=== PATIENT | female | born 1950 | race Caucasian/White ===

== ENCOUNTER 2016-08-11 06:43 | Inpatient (IN) | payer MEDICARE, MEDICAID ==
--- NOTE | 2016-07-06 12:14 | NUR ---
PMH, allergies, meds reviewed and documented. PReop and DOS instructions given including handouts of shower instructions, medications to stop before surgery, letter from Dr White, ortho consent, Surgical Services pamphlet and my contact information. Patient is at high risk for DANISHA and if she needs DANISHA study she would like to have it through Dr Crawford her head start director. I will contact him regarding testing. Patient is accompanied by her daughter today who is an SWITCHBOARD OPERATOR HELPER. Patient does live with her daughter.
--- NOTE | 2016-07-26 14:00 | NUR ---
JOINT REPLACEMENT PREOP CLASS PATIENT ATTENDED JOINT REPLACEMENT PREOP CLASS. CASE MANAGEMENT CONTACT INFORMATION PROVIDED. EDUCATION WAS PROVIDED REGARDING WHAT TO EXPECT BEFORE, DURING AND AFTER SURGERY. INCLUDING: OVERVIEW OF ANATOMY AND PHYSIOLOGY HOSPITAL TREATMENT SCHEDULE THERAPY DEMONSTRATION CASE MANAGEMENT RESPONSIBILITIES DISCHARGE PLANNING EQUIPMENT NEEDS JOINT REPLACEMENT WORKBOOK ANTI-COAGULATION SURGERY STRONG NUTRITIONAL PROTOCOL DISCHARGE INSTRUCTIONS [facility] PATIENT PORTAL, WITH INSTRUCTIONS CJR AND PREOP SURVERY PREOP BATHING- CHG GIVEN ALL PATIENT'S QUESTIONS ANSWERED TO THEIR SATISFACTION. PATIENTS AND COACHES ENCOURAGED TO CALL WITH ANY ADDITIONAL QUESTIONS OR CONCERNS. CM FOLLOWING FOR TRANSITIONAL CARE PLANNING NEEDS DURING HOSPITALIZATION.
[~2016-08-11] VITALS: Ht 156.2 cm; Wt 87.7 kg
[2016-08-11] VITALS (27 sets, daily range): BP systolic 114–178; BP diastolic 54–83; PULSE 68–94; RESP 13–20; TEMP 97–98.3; O2SAT 93–100; Ht 156.2 cm; Wt 87.7 kg
[~2016-08-11 06:43] MED LIST: ACET-62 PO; AMLO5TAB2 PO; CALC-1138 PO; CEFAZOLIN 2 GM VIAL IV ONE; FAMOTIDINE 20mg IVPB 50 ML IV ONE; FEXO180T94 PO; FISH12002 PO; GINK120C PO; GLUC500T13 PO; IPRA3AMP AEROSOL; LIDOCAINE 1% (10mg/ml) 2ml SDV ID ONE; LISI1TAB11 PO; MAGN250T33 PO; METOCLOPRAMIDE 10mg/2ml INJECTION IV ONE; MOME13HF3 INH; MULT-933 PO
[2016-08-11] MEDS ORDERED: ONDANSETRON 4mg/2ml INJECTION IV ONE (07:00)
[2016-08-11] MEDS ORDERED: DEXAMETHASONE 4mg/ml - 1ml INJECTION IV ONE (07:00)
[2016-08-11] MEDS ORDERED: ACETAMINOPHEN 500 MG TABLET PO ONE (07:00)
[2016-08-11] MEDS ORDERED: LR 1,000 ML IV PRN (07:00)
[2016-08-11] MEDS ORDERED: NOZIN NASAL SWAB NS ONE ×2 (07:00→14:30)
--- NOTE | 2016-08-11 09:20 | NUR ---
Sleep Study was done by Dr Crawford's office per Sarika. CPAP setting is to be at 14cm.
[2016-08-11 09:35] LABS: ANION GAP 14 MEQ/L (5-15); BUN/CREATININE RATIO 37 RATIO (6-26); CALCIUM 10.2 MG/DL (8.4-10.2); CHLORIDE 111 MEQ/L (98-107); CO2 - CARBON DIOXIDE 24 MEQ/L (22-30); GLOMERULAR FILTRATION RATE 55; GLUCOSE 93 MG/DL (65-110); POTASSIUM 4.1 MEQ/L (3.6-5); SODIUM 149 MEQ/L (134-144)
[2016-08-11] MEDS ORDERED: FENTANYL 100mcg/2ml INJECTION ONE (10:59)
[2016-08-11] MEDS ORDERED: MIDAZOLAM 2mg/2ml INJECTION ONE (10:59)
[2016-08-11] MEDS ORDERED: PROPOFOL 500mg 50 ML IV ONE (11:00)
--- NOTE | 2016-08-11 11:53 | ANESPREOP ---
Anesthesia Record Date and Time DATE: 08/11/16 TIME: 11:52 Proposed Surgical Procedure RT ERNIE NPO since: mn Allergies: Coded Allergies: aspirin (Verified Allergy, Unknown, anaphylaxis, 07/07/16) ibuprofen (Verified Allergy, Unknown, ANAPHYLAXIS, 07/07/16) Ht/Wt/BMI Height: 5 ' 1.50 " Weight: 87.700 kg BMI: 35.9 kg/m2 Vital Signs Date Time Temp Pulse Resp B/P Pulse Ox O2 Delivery O2 Flow Rate FiO2 08/11/16 11:36 98.0 08/11/16 09:40 16 08/11/16 09:22 78 178/83 95 Room Air Medications Inpatient Medications Current Medications Medications (Trade) Dose Ordered Sig/Pia Start Time Stop Time Status Last Admin Dose Admin Lactated Ringer's (Lactated Ringers) 1,000 ml @ 50 mls/hr Q20H PRN 08/11/16 07:00 08/11/16 09:53 50 MLS/HR Acetaminophen (Acetaminophen) 500 Mg Tablet, 2 TAB PO BID, (Reported) Do not exceed 3,200 mg of acetaminophen in a 24 hours period. Last Taken: on 07/21/16 Amlodipine Besylate (Amlodipine Besylate) 5 Mg Tablet, 1 TAB PO HS, (Reported) Last Taken: on 08/10/16 2230 Calcium Citrate/Vitamin D3 (Calcium Citrate + Vit D3 Tablet) 1 Each Tablet, 1 TAB PO HS, (Reported) Last Taken: on 07/21/16 Fexofenadine HCl (Madhavi Allergy) 180 Mg Tablet, 1 TAB PO DAILY, (Reported) Last Taken: on 07/21/16 Fish Oil/Borage/Flax/Om3,6,9#1 ([place] 3-6-9 1,200 mg Softgel) 1,200 Mg Capsule, 1 CAP PO DAILY, (Reported) Last Taken: on 07/21/16 Ginkgo Biloba Extract (Ginkgo Biloba) 120 Mg Capsule, 1 CAP PO DAILY, (Reported) Last Taken: on 07/21/16 Glucosamine HCl (Glucosamine HCl) 500 Mg Tablet, 1 CAP PO DAILY, (Reported) Last Taken: on 07/21/16 Ipratropium/Albuterol Sulfate (Iprat-Albut 0.5-3( 2.5) mg/3 ml) 3 Ml Ampul.neb, 1 UNIT AEROSOL Q6H PRN for SHORTNESS OF AIR, ( Reported) Last Taken: on 08/11/16 0630 Lisinopril/Hydrochlorothiazide (Lisinopril-Hctz 20-12.5 mg Tab) 1 Each Tablet, 2 TAB PO DAILY, (Reported) Last Taken: on 08/10/16 0630 Magnesium Oxide (Magnesium) 250 Mg Tablet, 250 MG PO BID, (Reported) Last Taken: on 07/21/16 Mometasone/Formoterol (Dulera 200 Mcg/5 Mcg Inhaler ) 13 Gm Hfa.aer.ad, 2 PUFF INH BID, (Reported) Last Taken: on 08/11/16 0630 Multivitamin (Multi-Day Vitamins) 1 Each Tablet , 1 TAB PO DAILY, (Reported) Last Taken: on 07/21/16 Currently on Beta Javier: No Medical/Surgical History Anesthesia PMH: Reports: *Hypertension, Arthritis (RT HIP), Asthma, COPD (PER H &P), Obesity, Denies: *Diabetes, Anesthesia Reactions, Cancer, Glaucoma, Malignant Hyperthermia, Renal Disease, Sleep Apnea Smoking Status: Former smoker (quit 20 years ago. history of 2ppd/ 20 years) Use Chewing Tobacco?: No Second Hand Exposure: No Substance Use Type: does not use Alcohol Intake: none HX of Last Menstrual Period: IN HER 40'S Past Surgical History Orthopedic Surgeries: Abdominal Surgeries: Yes - LAP KIRIT; APPY Genitourinary Surgeries: Cardiac Surgeries: Endocrine Surgeries: Reproductive Surgeries: Yes - C SECTION X2 Neurological Surgeries: Ear Surgeries: Nose Surgeries: Throat Surgeries: Other Surgeries: Yes - C SECTION X2 Anesthesia Adverse Reactions: FOUND none Family Hx of Anesthesia Advers: none Hx of Motion Sickness: No Pertinent Findings Laboratory Tests 08/11/16 09:17 Physical Exam Respiratory: Bilat breath sounds equal, Lungs clear Cardiovascular: FOUND Regular rate, rhythm Airway Assessment Mallampati Score: II TMD: 3 Fingerbreadths Neck Extension: Fair Overall Assessment: No Airway Concerns ASA: 3 Plan Anesthesia Plan: LMA, GETA Regional: Spinal Discussion Discussed risks/options/alternatives of anesthesia and questions answered. Patient consents. Nursing pain assessment noted. Present: Family Member Attestation Statement Prior to the delivery of any anesthetic medication, I examined the patient, developed the plan, obtained the patient's consent and discussed the risk and benefits of the procedure with the patient/guardian. GIA WHITE CRNA Aug 11, 2016 11:53
[2016-08-11] MEDS ORDERED: VANCOMYCIN 1 GRAM INJECTION ONE (12:01)
[2016-08-11] MEDS ORDERED: TRANEXAMIC ACID 1,000 MG in NORMAL SALINE 100 ML IV ONE ×2 (13:30→14:30)
[2016-08-11] MEDS ORDERED: EPHEDRINE SULFATE 50mg/ml INJECTION ONE (13:35)
[2016-08-11] MEDS ORDERED: KETAMINE 500mg/10ml INJECTION ONE (13:49)
[2016-08-11] MEDS ORDERED: HYDROMORPHONE 2mg/ml INJECTION IV PRN (14:15)
[2016-08-11] MEDS ORDERED: ONDANSETRON 4mg/2ml INJECTION IV PRN ×2 (14:15→14:30)
--- NOTE | 2016-08-11 14:15 | PDOPERATE ---
Operative Report Date of Operation 08/11/16 Side: Right Preoperative Diagnosis: hip primary DJD Postoperative Diagnosis Same as preoperative diagnosis. Operation/Procedure: total hip arthroplasty (right) Surgeon Jimi White MD Contract Processor RAFAEL Galvez Complications None. Regional Block: Spinal Estimated Blood Loss See Anesthesia Record. Fluids Please See Anesthesia Record. Description of Operation Ms. Kruse and her right hip were identified and marked in the the preoperative holding area. She was then brought back to the operating suite and proper anesthesia was administered. She was then positioned lateral on the operating table. The right lower extremity was then prepped and draped in my normal sterile fashion. Timeout was performed with all operating room personnel. A posterior approach was utilized. Approximately 15 cm incision was made in the skin and dissection carried down to the muscle fascia which was then split in line with skin incision. Charnley retractor was placed and the short external rotators were identified and tagged and detached. Capsulotomy was performed and the hip dislocated. A femoral neck osteotomy was performed approximately 1 cm proximal to the lesser trochanter. She has small head and acetabulum. The head was removed and acetabulum exposed. Labrum was removed and sequentially reamed to a size 49 and placed a 50 cup in 20 of anteversion. A liner was then placed. The proximal femur was exposed and prepared with a cookie cutter followed by reaming and broaching to a size 4. With a 0 head this gave her excellent stability and she was just a touch long. After thorough irrigation a final Accolade 2 size 4 with 1 32 neck stem was placed. We trialed again with a -2.5 head and this was good. A final a 36 mm ceramic -2.5 mm head was placed and the hip reduced. Betadine solution was allowed to sit in the wound for 3 minutes and fully irrigated out with normal saline. Joint cocktail was injected throughout soft tissue. The capsulotomy was repaired with Ethibond. Short external rotators were also repaired with Ethibond. 1 g of vancomycin powder was placed into the wound. The muscle fascia was then repaired with #1 Vicryl. I then left my system to close the subcutaneous tissue with 2-0 Vicryl followed by running 4-0 Monocryl skin followed by Dermabond and a sterile dressing. The patient with any placed back into supine position and taken to recovery room in the care of anesthesia. JENNIFER WHITE MD Aug 11, 2016 14:15
[2016-08-11] MEDS ORDERED: LORAZEPAM 1 MG TABLET PO PRN (14:30)
[2016-08-11] MEDS ORDERED: PRN ORDERS MC (14:30)
[2016-08-11] MEDS ORDERED: ALBUTEROL/IPRATROPIUM INHAL. 2.5mg-0.5mg/3ml Neb. AEROSOL PRN (14:30)
[2016-08-11] MEDS ORDERED: DiphenhydrAMINE 25 MG CAPSULE PO PRN (14:30)
[2016-08-11] MEDS ORDERED: EPINEPHRINE 0.25 MG, BUPIVACAINE 0.25% 75 MG, MORPHINE SULFATE 15 MG in NORMAL SALINE 3... INJ ONE (14:30)
[2016-08-11] MEDS ORDERED: METOCLOPRAMIDE 10mg/2ml INJECTION IV PRN (14:30)
[2016-08-11] MEDS ORDERED: DiphenhydrAMINE 50 MG/ML INJECTION IV PRN (14:30)
[2016-08-11] MEDS ORDERED: SENNOSIDES 8.6 MG TABLET PO PRN (14:30)
--- NOTE | 2016-08-11 15:13 | ANESPO ---
Post-Op Note Date 08/11/16 Time: 15:13 Status Pt Participated in Evaluation: Pt participated in person Vital Signs Date Time Temp Pulse Resp B/P Pulse Ox O2 Delivery O2 Flow Rate FiO2 08/11/16 15:00 97.0 69 14 130/55 93 Room Air Respiratory Function: Airway patent, Regular respirations Cardiovascular Function: Regular pulse Mental Status: Alert/oriented Pain Level Intensity: 0 Hydration: IV infusing Complications during Recovery None apparent Follow-Up Instructions Instructions Per Surgeon GIA WHITE CRNA Aug 11, 2016 15:13
--- NOTE | 2016-08-11 15:20 | NUR ---
ADMISSION PATIENT ARRIVED FROM PACU VIA CART AND PACU STAFF. SLIDE BOARD USED TO TRANSFER PATIENT TO SURGICAL UNIT BED. A/OX3. ROOM AIR. POST OP VITALS BEGAN. FIRST SET STABLE. BED IN THE LOWEST POSITION, CALL LIGHT WITHIN REACH, SIDE RAILS UPX2, AND BED ALARM ON. WILL CONTINUE TO MONITOR.
--- NOTE | 2016-08-11 15:23 | NUR ---
COUMADIN CONSULT (Initial): 66 y.o. female post op right total hip arthroplasty. Warfarin protocol ordered for DVT prophylaxis. goal INR = 1.5-2.5 date INR dose 08/11 -- plan: 3 mg Will give Warfarin 3 mg today. Patient has Lovenox 40 mg sq daily ordered while INR is subtherapeutic. no significant drug-drug interactions noted. Will continue to monitor and make adjustments accordingly. Thank you for the protocol, Hayley Fields RPh
[2016-08-11] MEDS: NORMAL SALINE 1,000 ML IV SCH (15:50)
--- NOTE | 2016-08-11 16:15 | DI ---
Indication: ITS.REASON: POST HIP REPLACEMENT PROCEDURE: PELVIS W/1 VIEW RT HIP: Encounter: Initial Comparison: None Findings: Postoperative changes of right total hip replacement are seen. There is expected postoperative subcutaneous gas. No evidence of hardware failure or acute fracture. No retained radiopaque surgical instruments or sponges seen. Impression: New right total hip prosthesis without evidence of immediate complication. .
[2016-08-11] MEDS ORDERED: WARFARIN 3 MG TABLET PO ONE (17:00)
[2016-08-11] MEDS: ACETAMINOPHEN 325 MG TABLET PO SCH ×2 (17:38→20:47)
--- NOTE | 2016-08-11 17:59 | NUR ---
END OF SHIFT REPORT PATIENT A/OX3. VITAL SIGNS STABLE. ROOM AIR. AFEBRILE. SCHEDULDED TYLENOL HAS BEEN GIVEN FOR PAIN. NO PRNS ADMINISTERED. PATIENT UP WITH ASSIST X1 WITH GB AND WALKER. DRESSING CLEAN, DRY, INTACT. PATIENT HAS VOIDED SINCE ADMISSION. NO BM DURING THE SHIFT. DENIES N/V, CHEST PAIN, AND SOA. WILL CONTINUE TO MONITOR.
[2016-08-11] MEDS: FORMOTEROL ORAL INH SCH (19:31)
[2016-08-11] MEDS: MOMETASONE ORAL INH SCH (19:31)
--- NOTE | 2016-08-11 20:00 | NUR ---
Patient moved from Room 109 to Rm 130 due to problem found in room. Family present.
[2016-08-11] MEDS: TRAMADOL 50 MG TABLET PO PRN (20:04)
[2016-08-11] MEDS: MAGNESIUM OXIDE 400 MG TABLET PO SCH (20:43)
[2016-08-11] MEDS: CEFAZOLIN 2 G in NORMAL SALINE 100 ML IV SCH (20:43)
[2016-08-11] MEDS: NOZIN NASAL SWAB NS SCH (20:47)
[2016-08-11] MEDS ORDERED: ENOXAPARIN 40 MG/0.4 ML INJECTION SQ SCH (21:00)
[2016-08-11] MEDS ORDERED: AMLODIPINE 5 MG TABLET PO SCH (22:00)
[2016-08-11] MEDS ORDERED: SENNOSIDES 8.6 MG TABLET PO SCH (22:00)
[2016-08-12 00:51] VITALS: BP 126/69; PULSE 82; RESP 18; TEMP 97.8; O2SAT 93
[2016-08-12] MEDS: TRAMADOL 50 MG TABLET PO PRN ×3 (01:41→15:12)
[2016-08-12 04:00] VITALS: BP 126/69; PULSE 82; RESP 18; TEMP 97.8; O2SAT 93
[2016-08-12] MEDS: CEFAZOLIN 2 G in NORMAL SALINE 100 ML IV SCH (04:37)
[2016-08-12] MEDS: NORMAL SALINE 1,000 ML IV SCH (04:38)
[2016-08-12 05:38] LABS: HCT - HEMATOCRIT 34.1 % (36-46); HGB - HEMOGLOBIN 10.8 GM/DL (12-16); MEAN CORPUSCULAR HGB 29.3 UUG (26-34); MEAN CORPUSCULAR HGB CONC(MCHC 31.7 GM/DL (31-37); MEAN CORPUSCULAR VOLUME 92.4 UM3 (80-100); MEAN PLATELET VOLUME 10.6 UM3 (9.4-12.4); RED BLOOD COUNT 3.69 M/MM3 (4.00-5.20); WBC - WHITE BLOOD COUNT 11.6 T/MM3 (4.5-11.0)
[2016-08-12 05:39] LABS: INR 1.09 (0.76-1.04); PROTHROMBIN TIME 11.9 SEC (9.31-12.49)
[2016-08-12 06:05] LABS: ANION GAP 9 MEQ/L (5-15); BUN/CREATININE RATIO 27 RATIO (6-26); CALCIUM 9.3 MG/DL (8.4-10.2); CHLORIDE 111 MEQ/L (98-107); CO2 - CARBON DIOXIDE 24 MEQ/L (22-30); CREATININE 0.9 MG/DL (0.7-1.2); GLOMERULAR FILTRATION RATE 62; GLUCOSE 126 MG/DL (65-110); POTASSIUM 4.1 MEQ/L (3.6-5); SODIUM 144 MEQ/L (134-144)
[2016-08-12] MEDS: NOZIN NASAL SWAB NS SCH ×2 (06:50→14:00)
--- NOTE | 2016-08-12 07:10 | NUR ---
END OF SHIFT SUMMARY. Alert and orientated. Ambulates in hallway last evening with use of walker and stand by assistance. Ambulates to bathroom during the night with stand by assist. Able to get in and out of bed independantly; with very minimal assistance. Dressing to right hip dry and intact. Tolerates food and fluid well. NS at 80 cc/hr. Recieves IV antibiotic. Scheduled TYLENOL and PRN TRAMADOL given for pain and proves effective.
--- NOTE | 2016-08-12 08:09 | PDORTHOPN ---
Subjective Date DATE: 08/12/16 TIME: 08:06 Subjective Pt is doing well. Not much pain but feels stiff around the hip this AM. Denies feeling SOA or having cough / CP. She has been up with good tolerance. No other complaints. Objective Vital Signs Vital signs Vital Signs 08/12/16 08/12/16 00:51 04:00 Temp 97.8 97.8 Pulse 82 82 Resp 18 18 B/P 126/69 126/69 Pulse Ox 93 93 O2 Delivery Room Air Room Air Height (Feet): 5 Height (Inches): 1.50 Weight (Kilograms): 87.700 General General Appearance: Alert, No Acute Distress Respiratory (Brief) Respiratory Brief: FOUND: non-labored Cardiovascular (Brief) Cardiac: FOUND: calf easily compressible, calf soft, nontender, pedal pulses intact Surgical Site Incision: FOUND: Mepilex dressing intact, no drainage Neurologic (Brief) Neurological Brief: FOUND: extremities w/o deficits, neuro intact Psychiatric (Brief) Psychiatric Brief: FOUND: alert, no acute distress Laboratory Laboratory Laboratory Tests 08/12/16 04:45 Laboratory Tests 08/11/16 09:17 08/12/16 04:45 Assessment & Plan Problems: (1) Degenerative arthritis of hip Status: Chronic Qualifiers: Osteoarthritis type: primary Laterality: right Qualified Codes: M16.11 - Unilateral primary osteoarthritis, right hip Assessment & Plan: Lovenox - Coumadin protocol for VTE prophylaxis. Pt has a severe allergy to aspirin and NSAIDs. Labs WNL post op. Afebrile and VSS. SCD's and early mobilization for added DVT coverage. PT/OT services to improve independent function. Discharge Planning per Case Management. Hospital Course Summary Disclaimer The visit summary below is not to be considered part of the above Progress Note. KENAN FERRARA Aug 12, 2016 08:09
[2016-08-12] MEDS: MOMETASONE ORAL INH SCH (08:21)
[2016-08-12] MEDS: FORMOTEROL ORAL INH SCH (08:21)
[2016-08-12 08:30] VITALS: BP 156/85; PULSE 86; RESP 16; TEMP 98.6; O2SAT 97
[2016-08-12] MEDS: ACETAMINOPHEN 325 MG TABLET PO SCH ×2 (08:32→12:06)
[2016-08-12] MEDS: MAGNESIUM OXIDE 400 MG TABLET PO SCH (08:33)
[2016-08-12] MEDS ORDERED: LISINOPRIL/HCTZ 20mg/12.5mg TABLET PO SCH (09:00)
[2016-08-12] MEDS ORDERED: FEXOFENADINE 180 MG TABLET PO SCH (09:00)
[2016-08-12] MEDS ORDERED: TRAM50TA53 PO (09:00)
[2016-08-12] MEDS ORDERED: WARF2TAB58 PO (09:00)
[2016-08-12] MEDS ORDERED: POLYETHYL.GLYCOL 3350 PACKET 17gm PO SCH (09:00)
[2016-08-12] MEDS ORDERED: DOCUSATE SODIUM 100 MG CAPSULE PO SCH (09:00)
[2016-08-12] MEDS ORDERED: ACET-2321 PO (09:00)
[2016-08-12] MEDS ORDERED: ENOX40DI SQ (09:00)
[2016-08-12] MEDS ORDERED: POLY17PO18 PO (09:00)
--- NOTE | 2016-08-12 09:23 | NUR ---
WARFARIN CONSULT S: 66 y/o F on warfarin for post-ortho VTE ppx. Goal INR 1.5-2.5. O: Date INR Warfarin Dose 08/11 3 mg 08/12 1. PLAN: 3 mg A/P: No significant drug-drug interactions. Will order warfarin 3 mg PO x 1 today. Enoxaparin 40 mg subQ daily ordered until INR is in goal range. Will continue to monitor & make adjustments accordingly. Thank you for the consult. Emily Rg, PharmD, BCPS
--- NOTE | 2016-08-12 09:42 | NUR ---
CM CM IN TO VISIT WITH PT. SHE IS ALERT AND ORIENTED. SHE PLANS TO RETURN HOME. SHE DOES NOT HAVE FWW. SHE REQUESTS THAT ONE BE ORDERED FROM [facility] AND DELIVERED TO [facility]. SHE IS MADE AWARE THAT SHE WILL GO HOME WITH LOVENOX INJECTIONS. HER DAUGHTER, ROBERTH, IS A NURSE AND WILL GIVE PT INJECTIONS. PT WILL DO LAB AT [facility]. SHE WILL DO OUTPT AT [facility]. SHE WOULD LIKE LOVENOX CALLED TO [facility]. PT IS GIVEN CONTACT INFORMATION. LACE SCORE IS 8. Addendum: 08/12/16 at 0945 by SPEEDY CHAMBERS RN Amended: Links added.
--- NOTE | 2016-08-12 09:53 | NUR ---
CM RX FOR LOVENOX 40MG SQ DAILY #5 NO REFILL IS CALLED TO [facility] PER PT REQUEST. CM REQUESTS RETURN CALL WITH PT OUT OF POCKET COST FOR MEDICATION.
--- NOTE | 2016-08-12 10:29 | NUR ---
CM PT COST FOR LOVENOX WILL BE $3.30. PT MADE AWARE.
[2016-08-12] MEDS ORDERED: WARFARIN 3 MG TABLET PO ONE (12:00)
[2016-08-12 12:11] VITALS: BP 157/83; PULSE 87; RESP 16; TEMP 97.9; O2SAT 97
--- NOTE | 2016-08-12 12:17 | DSPDOC ---
General Date Date DATE: 08/12/16 TIME: 12:15 Attending Physician Yazan White MD Admitting Physician Yazan White MD Consulting Physician Admitting Diagnosis PRIMARY DEGENERATIVE JOINT DISEASE RIGHT HIP Discharge Diagnosis right hip primary DJD Procedures Right total hip arthroplasty Diagnosis Right hip primary DJD History of Present Illness HPI Elements This patient was admitted for elective surgical tx of end stage degenerative joint disease that failed to respond to conservative treatment. Further details of this is found in the admission H&P. Hospital Course After appropriate preoperative clearance and signing of operative consent, the patient was given IV antibiotics, according to orthopedic protocol. The patient was taken to the operating room and underwent elective joint arthroplasty. Following surgery, antibiotics were discontinued less than 24 hours according to joint protocol. Appropriate anticoagulants were initiated and SCDs added for DVT prevention. The dressing was clean, dry, and intact. Pain control was obtained via multimodal approach. Bowel motivation addressed with scheduled and PRN medications. Early mobilization was initiated through PT services. Discharge arrangements made by a collaborative effort between the patient and Case Management. Follow-up is scheduled in 2-3 weeks. Discharge instructions given by orthopedic providers and nursing staff at discharge. Discharge condition was good. Problems: (1) Degenerative arthritis of hip Status: Chronic Assessment & Plan: Lovenox - Coumadin protocol for VTE prophylaxis. Pt has a severe allergy to aspirin and NSAIDs. Labs WNL post op. Afebrile and VSS. SCD's and early mobilization for added DVT coverage. PT/OT services to improve independent function. Discharge Planning per Case Management. Associated Postoperative Event: Acute P.O. Anemia Acute P.O. Anemia: Patient received IVF, No intervention required Laboratory Laboratory Tests Test 08/12/16 04:45 White Blood Count 11.6T/MM3 Red Blood Count 3.69M/MM3 Hemoglobin 10.8GM/DL Hematocrit 34.1% Mean Corpuscular Volume 92.4UM3 Mean Corpuscular Hemoglobin 29.3UUG Mean Corpuscular Hemoglobin Concent 31.7GM/DL RDW Standard Deviation 43.2FL Platelet Count 360T/MM3 Mean Platelet Volume 10.6UM3 Prothromb Time International Ratio 1.09 Turbidity < 20 Sodium Level 144MEQ/L Potassium Level 4.1MEQ/L Chloride Level 111MEQ/L Carbon Dioxide Level 24MEQ/L Anion Gap 9MEQ/L Blood Urea Nitrogen 24.0MG/DL Creatinine 0.9MG/DL Glomerular Filtration Rate Calc 62 BUN/Creatinine Ratio 27RATIO Glucose Level 126MG/DL Calculated Osmolality 283MOSM/KG Calcium Level 9.3MG/DL Icterus Index < 2 Chemistry Specimen Hemolysis < 15 Home Meds Active Scripts Warfarin Sodium (Coumadin) 2 Mg Tablet, 2 MG PO NOON, #30 TAB Take by mouth, 1 time a day (at NOON). Prov:LAITH FULLER 08/12/16 Polyethylene Glycol 3350 (Healthylax) 17 Gm Powd.pack, 17 G PO DAILY, #30 PACKET Prov:LAITH FULLER 08/12/16 Tramadol HCl (Ultram) 50 Mg Tablet, 50-100 MG PO Q4H Y for PAIN, #60 TAB Prov:LAITH FULLER 08/12/16 Acetaminophen (Tylenol) 325 Mg Tablet, 650 MG PO QID, #100 TAB Prov:LAITH FULLER 08/12/16 Enoxaparin Sodium (Lovenox) 40 Mg/0.4 Ml Inj, 40 MG SQ Q24H, #5 Prov:LAITH FULLER 08/12/16 Reported Medications Fish Oil/Borage/Flax/Om3,6,9#1 ([place] 3-6-9 1,200 mg Softgel) 1,200 Mg Capsule, 1 CAP PO DAILY 07/07/16 Multivitamin (Multi-Day Vitamins) 1 Each Tablet, 1 TAB PO DAILY, TAB 07/07/16 Magnesium Oxide (Magnesium) 250 Mg Tablet, 250 MG PO BID, TAB 07/07/16 Glucosamine HCl (Glucosamine HCl) 500 Mg Tablet, 1 CAP PO DAILY, TAB 07/07/16 Ginkgo Biloba Extract (Ginkgo Biloba) 120 Mg Capsule, 1 CAP PO DAILY 07/07/16 Ipratropium/Albuterol Sulfate (Iprat-Albut 0.5-3(2.5) mg/3 ml) 3 Ml Ampul.neb, 1 UNIT AEROSOL Q6H Y for SHORTNESS OF AIR, VIAL 07/07/16 Calcium Citrate/Vitamin D3 (Calcium Citrate +Vit D3 Tablet) 1 Each Tablet, 1 TAB PO HS 07/07/16 Fexofenadine HCl (Madhavi Allergy) 180 Mg Tablet, 1 TAB PO DAILY, TAB 07/07/16 Amlodipine Besylate (Amlodipine Besylate) 5 Mg Tablet, 1 TAB PO HS 07/07/16 Lisinopril/Hydrochlorothiazide (Lisinopril-Hctz 20-12.5 mg Tab) 1 Each Tablet, 2 TAB PO DAILY 07/07/16 Mometasone/Formoterol (Dulera 200 Mcg/5 Mcg Inhaler) 13 Gm Hfa.aer.ad, 2 PUFF INH BID 07/07/16 Discontinued Reported Medications Acetaminophen (Acetaminophen) 500 Mg Tablet, 2 TAB PO BID, TAB Do not exceed 3,200 mg of acetaminophen in a 24 hours period. 07/07/16 Discharge Disposition Please refer to Case Management Notes for patient's disposition. Estimated Blood Loss 150.0 LAITH FULLER Aug 12, 2016 12:17
--- NOTE | 2016-08-12 15:25 | NUR ---
DISCHARGE PT DISCHARGED TO HOME IN GOOD CONDITION. PRESCRIPTIONS CALLED TO [facility]. COPIES ON CHART. PT'S DAUGHTER IN ROOM FOR DISCHARGE EDUCATION. POST OP, ORTHO, COUMADIN, AND LOVENOX DISCHARGE INSTRUCTIONS REVIEWED. PT AND DAUGHTER'S QUESTIONS ANSWERED AND BOTH VERBALIZED UNDERSTANDING. PACKET GIVEN TO PATIENT. PATIENT WHEELED TO FRONT ENTRANCE ACCOMPANIED BY DAUGHTER AND NURSING STAFF.
[2016-08-13] MEDS ORDERED: MILK OF MAGNESIA 30 ML SUSP PO SCH (08:00)
[2016-08-13] MEDS ORDERED: BISACODYL 10 MG SUPPOSITORY RECTALLY SCH (20:00)
== END 2016-08-12 15:16 | disposition home or self-care (01) | DRG 470 ==
LOC: SRG 09:00
PROVIDERS: ADMIT Orthopaedic Surgery; ATTEND Orthopaedic Surgery
PROC: 0SR904A Replacement of Right Hip Joint with Ceramic on Polyethylene Synthetic Substitute, Uncemented, Open Approach (ICD-10-PCS; principal; 2016-08-11 13:02)
DX: M16.11 Unilateral primary osteoarthritis, right hip (principal); D64.9 Anemia, unspecified; I10 Essential (primary) hypertension; J45.909 Unspecified asthma, uncomplicated; J44.9 Chronic obstructive pulmonary disease, unspecified; E03.9 Hypothyroidism, unspecified; Z87.891 Personal history of nicotine dependence; Z88.6 Allergy status to analgesic agent; Z88.8 Allergy status to other drugs, medicaments and biological substances
CPT/HCPCS: 36415; 80048; 85027; 85610; 94640